=== PATIENT | male | born 1955 | race Caucasian/White ===

== ENCOUNTER 2017-08-04 23:33 | Inpatient (IN) | payer OTHER ==
[~2017-08-04 23:33] MED LIST: LIPI10TA PO; MECL25 PO
[2017-08-04 23:35] VITALS: BP 204/116; PULSE 84; RESP 17; TEMP 98.2; O2SAT 99
[2017-08-04 23:42] VITALS: PULSE 90; RESP 22; O2SAT 100
[2017-08-04] MEDS ORDERED: SODIUM CHLOR 0.9% 1000 ML INJ 1,000 ML IV ONE (23:48)
[2017-08-04] MEDS ORDERED: HEPARIN SODIUM - IV 10,000 UNITS/10 ML VIAL IV STA (23:48)
[2017-08-04] MEDS ORDERED: NITROGLYCERIN 0.4 MG SL 25 TABS/BTL SL STA (23:48)
[2017-08-04] MEDS ORDERED: ASPIRIN 81 MG CHEW TAB PO STA (23:48)
[2017-08-04 23:51] VITALS: O2SAT 100
[2017-08-05] VITALS (24 sets, daily range): BP systolic 120–179; BP diastolic 70–105; PULSE 64–90; RESP 16–20; TEMP 97.8–98; O2SAT 80–100
[2017-08-05] MEDS ORDERED: NITROGLYCERIN-D5W 50 MG/250 ML 250 ML IV PRN
[2017-08-05] MEDS ORDERED: HEPARIN SODIUM - IV 10,000 UNITS/10 ML VIAL IV ONE
[2017-08-05] MEDS ORDERED: SODIUM CHLORIDE 0.9% FLUSH 10 ML FLUSH IVF PRN
--- NOTE | 2017-08-05 00:01 | PD ---
HPI . Chest pain Chief Complaint: Chest Pain Time Seen by Provider: 23:45 Travel History International Travel<30 days: No Contact w/Intl Traveler<30days: No Traveled to known affect area: No History of Present Illness HPI This patient presents with the chief complaint of chest pain and diaphoresis. Onset was one hour ago. Chest pain is described as a pressure-like sensation which has been continuous and which he rates 10/10. The pain radiates to his jaw. He denies any shortness of breath. He denies any nausea or vomiting. He states he took 1 baby aspirin prior to arrival with no relief of his symptoms. This patient is a smoker. He has a history of hypertension but is on no medications. He has a history of hyperlipidemia for which he takes fish oil. PFS Past Medical History Blood Disorders: No Cancer: No High Cholesterol: Yes Endocrine: No Gastrointestinal Disorders: Yes (APPY IN 70'S) Genitourinary: No Hypertension: Yes (TOLD TO WATCH BP) Immune Disorder: No Musculoskeletal: Yes (ACL REPAIR) Neurologic: No Psychiatric: No Reproductive: No Respiratory: No Myocardial Infarction: Yes (08/04/17) Past Surgical History Appendectomy: Yes Tonsillectomy: Yes Other Surgery: Yes (torn ACL repair) Social History Alcohol Use: No Tobacco Use: Yes Substance Use: No Allergies-Medications (Allergen,Severity, Reaction): Coded Allergies: No Known Allergies (Unverified , 08/04/17) Reported Meds & Prescriptions Reported Meds & Active Scripts Active Review of Systems Except as stated in HPI: all other systems reviewed are Neg General / Constitutional: Positive: Other (diaphoresis) Cardiovascular: Positive: Chest Pain or Discomfort Physical Exam Narrative GENERAL: Patient is awake and alert. He appears anxious. SKIN: Patient is cool and clammy. HEAD: Normocephalic. EYES: Pupils equal and round. No scleral icterus. No injection or drainage. ENT: No nasal bleeding or discharge. Mucous membranes pink and moist. NECK: Trachea midline. Full range of motion without pain.. CARDIOVASCULAR: Regular rate and rhythm. RESPIRATORY: No accessory muscle use. Clear to auscultation. Breath sounds equal bilaterally. GASTROINTESTINAL: Abdomen soft. Nontender. Bowel sounds present. Nondistended. MUSCULOSKELETAL: No obvious deformities. NEUROLOGICAL: Awake and alert. No obvious cranial nerve deficits. Motor grossly within normal limits. Normal speech. PSYCHIATRIC: Appropriate mood and affect; insight and judgment normal. Data Data Last Documented VS Vital Signs Date Time Temp Pulse Resp B/P (MAP) Pulse Ox O2 Delivery O2 Flow Rate FiO2 08/05/17 00:18 83 20 179/105 (129) 100 Nasal Cannula 2.00 08/04/17 23:35 98.2 Orders Orders Troponin I (08/04/17 23:48) Ckmb (Isoenzyme) Profile (08/04/17 23:48) Complete Blood Count With Diff (08/04/17 23:48) I-Stat Profile (08/04/17 23:48) I-Stat Creatinine (08/04/17 23:48) Calcium (08/04/17:48) Magnesium (Mg) (08/04/17 23:48) Prothrombin Time / Inr (Pt) (08/04/17 23:48) Act Partial Throm Time (Ptt) (08/04/17 23:48) B-Type Natriuretic Peptide (08/04/17 23:48) Chest, Single Ap (08/04/17 23:48) Electrocardiogram (08/04/17 23:48) Oxygen Administration (08/04/17 23:48) Iv Access Insert/Monitor (08/04/17 23:48) Oximetry (08/04/17 23:48) Sodium Chlor 0.9% 1000 Ml Inj (Ns 1000 M (08/04/17 23:48) Sodium Chloride 0.9% Flush (Ns Flush) (08/05/17 00:00) Aspirin Chew (Aspirin Chew) (08/04/17 23:48) Nitroglycerin Sl (Nitrostat Sl) (08/04/17 23:48) Nitroglycerin-D5w 50 Mg/250 Ml (Nitrogly (08/05/17 00:00) Heparin Inj (Heparin Inj) (08/04/17 23:48) Heparin Inj (Heparin Inj) (08/05/17 00:00) Admit Order (Ed Use Only) (08/05/17 00:02) Labs Laboratory Tests Test 08/04/17 23:50 Bedside Hemoglobin 16.3 G/DL Bedside Hematocrit 48.0 % Prothrombin Time 10.2 SEC Prothromb Time International Ratio 0.9 RATIO Activated Partial Thromboplast Time 23.6 SEC Bedside Sodium 140 MMOL/L Bedside Potassium 4.2 MMOL/L Bedside Chloride 106 MMOL/L Bedside Blood Urea Nitrogen 23 MG/DL Bedside Creatinine 1.0 MG/DL Bedside Glucose 209 MG/DL [facility] Medical Decision Making Medical Screen Exam Complete: Yes Emergency Medical Condition: Yes Interpretation(s) EKG shows hyperacute T waves anteriorly, ST segment elevation in aVR and ST segment depression in the inferior leads. This EKG is compatible with an anterior CA. Differential Diagnosis Differential diagnosis of chest pain includes but is not limited to musculoskeletal pain, pulmonary embolism, acute coronary syndrome, pneumonia, pleurisy Narrative Course This patient presents with chest pain and shortness of breath for an hour. His EKG is compatible with an anterior CA. STEMI alert was called. Critical Care Narrative Aggregate critical care time was 20 minutes. Time to perform other separately billable procedures was not included in the critical care time. My time did not include minutes spent treating any other patients simultaneously or on activities that did not directly contribute to the patient's treatment. The services I provided to this patient were to treat and/or prevent clinically significant deterioration due to acute CA I provided critical care services requiring my management, as noted below: Chart data review, documentation time, medication orders and management, vital sign assessments/reviewing monitor data, ordering and reviewing lab tests, ordering and interpreting/reviewing x-rays and diagnostic studies, care of the patient and discussion of the patient with the admitting physicians Diagnosis Primary Impression: Acute CA Qualified Codes: I21.3 - ST elevation (STEMI) myocardial infarction of unspecified site Admitting Information Admitting Physician Requests: Admit Condition: Stable Sole Morillo MD Aug 05, 2017 00:01
[2017-08-05 00:06] LABS: I-STAT POTASSIUM 4.2 MMOL/L (3.5-4.9); I-STAT SODIUM 140 MMOL/L (138-146)
[2017-08-05 00:14] LABS: APTT (PATIENT) 23.6 SEC (24.3-30.1); INTERNATIONAL NORMALIZED RATIO 0.9 RATIO; PROTHROMBIN TIME - PATIENT 10.2 SEC (9.8-11.6)
--- NOTE | 2017-08-05 00:22 | RADRPT ---
EXAM DATE/TIME: 08/05/2017 00:03 [place] COMPARISON: No previous studies available for comparison. INDICATIONS : Left side chest pain. MEDICAL HISTORY : Hypertension. SURGICAL HISTORY : None. ENCOUNTER: Initial ACUITY: 1 day PAIN SCORE: 9/10 LOCATION: Left chest FINDINGS: A single view of the chest demonstrates the lungs to be symmetrically aerated without evidence of mas s, infiltrate or effusion. The cardiomediastinal contours are unremarkable except tortuous aorta. O sseous structures are intact. CONCLUSION: No acute disease. Giacomo Flores MD on August 05, 2017 at 0:19 Board Certified Radiologist. This report was verified electronically.
[2017-08-05] MEDS ORDERED: HEPARIN-NS/PF INJ 1,000 ML ONE (00:34)
[2017-08-05] MEDS ORDERED: HEPARIN SODIUM - IV 10,000 UNITS/10 ML VIAL ONE (00:35)
[2017-08-05] MEDS ORDERED: MIDAZOLAM HCL 2 MG/2 ML VIAL ONE (00:35)
[2017-08-05 00:43] LABS: MAGNESIUM 2.1 MG/DL (1.5-2.5)
[2017-08-05 00:44] LABS: CREATINE KINASE 225 U/L (39-308)
[2017-08-05 00:50] LABS: AUTOMATED NEUTROPHIL # 7.5 TH/MM3 (1.8-7.7); BASOPHIL # 0.1 TH/MM3 (0-0.2); BASOPHIL % 0.5 % (0.0-2.0); EOSINOPHIL # 0.1 TH/MM3 (0-0.4); EOSINOPHIL % 0.8 % (0.0-4.0); HEMATOCRIT 46.2 % (39.0-51.0); LYMPH % 17.7 % (9.0-44.0); LYMPHOCYTE # 1.8 TH/MM3 (1.0-4.8); MEAN CELL VOLUME 88.5 FL (80.0-100.0); MEAN CORPUSCULAR HEMOGLOBIN 31.2 PG (27.0-34.0); MEAN CORPUSCULAR HGB CONC 35.3 % (32.0-36.0); PLATELET COUNT 205 TH/MM3 (150-450); RED BLOOD COUNT 5.22 MIL/MM3 (4.50-5.90); RED CELL DISTRIBUTION WIDTH 13.2 % (11.6-17.2); WHITE BLOOD COUNT 10.3 TH/MM3 (4.0-11.0)
[2017-08-05] MEDS ORDERED: TIROFIBAN INFUSION INJ 250 ML IV ONE (00:50)
[2017-08-05 00:51] LABS: HEMO FLAGS AUTO DIFF
[2017-08-05 00:56] LABS: CKMB 4.1 NG/ML (0.5-3.6)
[2017-08-05] MEDS ORDERED: CLOPIDOGREL 300 MG TAB ONE (01:11)
--- NOTE | 2017-08-05 01:26 | CATHPROC ---
Datam HIS Report Study Information Study Number Admission Scheduled Start Study Start [id number] Aug 04 2017 11:33PM 08/05/2017 Aug 05 2017 12:23AM [place] Service Cardiac Catheterization Admit Source Facility Department Other [facility] - Certified Prosthetist Vice President Physician and Clinical Staff Initial Ida Okeefe Client Technical Professional Marce Li,KELLY Client Technical Professional Kerri Mack RN Other cathlab, cathlab Recorder Jack Pérez RCIS(BS) Scrub Bunny GuajardoRT(R) Procedures Performed Procedure Location (Site) Vessel Name Coronary Angiograms LCA Left Coronary Coronary Angiograms RCA Right Coronary Drug Eluting Inflatio LAD Mid Left Coronary L Heart Cath LV Gram-hand inj. LV LV Ventricle PTCA LAD Mid Left Coronary Wire insertion Fem Art (right) Femoral Art Equipment Time Custom Marine Canvas Fabricator Description Size Mfg Part Number Used/Scraped [id number] 00:48 FlatStack CRITICAL CARE WIRE, ImageProtect PROWATER 180CM 180CM Used *[id number] TRANSDUCER, TRUWAVE [id number] 00:37 BENDER ARREOLA * Used W/REBEKACOCK *[id number] BALLOON, 3.25 15MM NC 01:06 BOSTON SCIENTIFIC 3.25 15MM [id number] [place] [id number] 00:52 [employer] VL4 GUIDE CATHETER RUNWAY FR 6 Used *[id number]-502-10.0- INTRODUCER SET, 00:46 [employer]OOK [employer]. FR 5 SC-NT-U-SST Used MICROPUNCTURE, STIFFENED *[id number] [id number] *[id number] *[id number] PIGTAIL ANG. 145 INFINITI [id number] CATHETER *[id number] 01:12 DAIG/ST. GRIFFIN MEDICAL ANGIOSEAL, FR6 VIP FR 6 Used *[id number] 00:37 MEDLINE INDUSTRIES PACK, CCL CUSTOM * Used *[id number] 00:37 MEDLINE PACER PEN, SKIN DUAL W/ RULER * Used *[id number] 00:59 MEDTRONIC BALLOON, 2.5 X 20MM EUPHORA 20MM Used *[id number] STENT, 3.0 26 RESOLUTE [id number] 01:02 MEDTRONIC 3.0 26 Used INTEGRITY RX *[id number] 00:48 [employer] 30 JOYCE INDEFLATOR Used *[id number]- 00:37 [employer] MEDICAL SHEATH, FR6.5 PRELUDE 11CM FR 6.5 038ACT Used *[id number] 00:37 [employer] MEDICAL WIRE, 3MMJ .035 180CM 180CM Used *[id number] PROBE COVER, STERILE [id number] 00:37 [employer] MEDICAL * Used ULTRASOUND W/ GEL *[id number] 00:37 NAMIC MANIFOLD, 4 PORT * Used *[id number] 00:37 NYCOMED OMNIPAQUE, 350 MG, 150ML 150ML [id number] Used [id number] 00:37 ZUNIGA [facility] BLANKET,WARM AIR CCL * Used *[id number] Equipment Model, Serial, Lot Number and Expiration Data Description Model Number Serial Number Lot Number Expiration Date BALLOON, 3.25 15MM NC QUANTUM [id number] 01-22-2020 APEX MR STENT, 3.0 26 RESOLUTE [id number] 09-11-2018 INTEGRITY RX History: Allergies Allergy Reaction No Known Allergies History: Risk Factors Family History of Hypertension Dyslipidemia Previous MN Previous Heart Failure Premature CAD Yes No No No No Prior Valve Prior PCI Prior CABG Surgery No No No Cerebrovascular Peripheral Artery Chronic Lung On Dialysis Diabetes Disease Disease Disease No No No No No History: Symptoms/Diagnosis Selection Items Angina-unstable Chest pain History: Stress Tests Stress or Imaging Studies Performed No History: Other Disease Selection Items HTN History: Other Current Smoker Packs a Day Years Used Pack Years Yes 1 25 Labs Hgb (g/dl) Hct (%) 11.60-17.00 35.00-51.00 13.6 48 Glucose (mg/dl) Creatinine (mg/dl) 74.00-106.00 0.50-1.30 209 1.0 Na (meq/l) K (meq/l) 136.00-145.00 3.50-5.10 140 4.2 CPK-MB (ng/ML) 0.50-3.60 Not Drawn Medication Medication Total Dose (Bolus/Oral) Medication Total Dosage/Unit 1% XYLOCAINE 20 mL AGGRASTAT BOLUS 56 meq/kg FENTANYL 100 mcg HEPARIN 3000 units NTG (IC) 200 mcg PLAVIX 600 mg VERSED 2 mg Medications (Bolus/Oral) Medication Time Given Dosage/Unit Administered By Reason VERSED 08/05/2017 12:43:59 AM 2 mg Marce Li 2 mg VERSED given in lab by Marce Li RN in Left Antecubital via Peripheral IV. Ordered by Ida Navarro. FENTANYL 08/05/2017 12:44:05 AM 50 mcg Marce Li 50 mcg FENTANYL given in lab by Marce Li RN in Left Antecubital via Peripheral IV. Ordered by Ida Washburn. 1% XYLOCAINE 08/05/2017 12:44:11 AM 20 mL Ida Washburn 20 mL 1% XYLOCAINE given in lab by Ida Washburn in Right Groin via Subcutaneous. Ordered by Ida Hidalgo. FENTANYL 08/05/2017 12:49:07 AM 50 mcg Marce Li 50 mcg FENTANYL given in lab by Marce Li, KELLY via Peripheral IV. Ordered by Ida Washburn. HEPARIN 08/05/2017 12:49:54 AM 3000 units Marce Li Patient arrived on 3000 units HEPARIN given by Marce Li RN in Left Antecubital via Peripheral IV. Ordered by Ida Washburn. AGGRASTAT BOLUS 08/05/2017 12:52:57 AM 56 meq/kg Marce Li Patient arrived on 56 meq/kg AGGRASTAT BOLUS given by Marce Li RN in Left Antecubital via Per ipheral IV. Amount given = 6272 meq. Ordered by Ida Washburn. NTG (IC) 08/05/2017 1:07:24 AM 200 mcg Bunny Guajardo 200 mcg NTG (IC) given in lab by Bunny Guajardo, RT(R) via Intra-coronary. Ordered by Khris Washburn. PLAVIX 08/05/2017 1:18:44 AM 600 mg Marce Li 600 mg PLAVIX given in lab by Marce Li, KELLY via Oral. Ordered by Ida Washburn. Medication (Drip) Medication Time Given Dosage/Unit Concentration/Unit Diluent (ml) Solution AGGRASTAT DRIP 08/05/2017 12:56:39 AM 0.15 mcg/kg/min 12.5 mg 250 NaCl .9 Patient arrived on 0.15 mcg/kg/min AGGRASTAT DRIP given by Marce Li RN in Left Antecubital vi a Peripheral IV. Pump/Drip Flow = 20.2 ml/hr using NaCl .9 with a concentration of 12.5 mg in 250 ml. Ordered by Ida Washburn. AGGRASTAT DRIP 08/05/2017 1:22:02 AM 0 units/hr 0 STOPPED 0 units/hr AGGRASTAT DRIP STOPPED given in lab by Kerri Mack RN via Peripheral IV. Pump/Drip Cory w = 0 ml/hr using [Solution Name]. Ordered by Ida Washburn. IV Solutions 08/05/2017 12:29:02 AM 0 mL (IV) 500 NaCl .9 Patient arrived on IV Solutions in Right Antecubital via Peripheral IV. Pump/Drip Flow = 20 ml/hr usi ng NaCl .9. Ordered by Ida Washburn. NITROGLYCERIN DRIP 08/05/2017 12:29:03 AM 30 mcg/min 50 mg 250 D5W Patient arrived on 30 mcg/min NITROGLYCERIN DRIP given by rhonda ellis in Right Antecubital via P eripheral IV. Pump/Drip Flow = 9 ml/hr using D5W with a concentration of 50 mg in 250 ml. Ordered by Ida Washburn. NITROGLYCERIN DRIP 08/05/2017 12:49:31 AM 60 mcg/min 50 mg 250 D5W Patient arrived on 60 mcg/min NITROGLYCERIN DRIP given by Kerri Mack RN in Right Antecubital via Peripheral IV. Pump/Drip Flow = 18 ml/hr using D5W with a concentration of 50 mg in 250 ml. Ordered by Ida Washburn. Initial Case Assessment Cardiovascular HR Rhythm NIBP Chest Pain 85 stemi 166/100 10 Edema Present Skin color Skin None Normal Warm Dry Circulatory - Right Pulses Dorsalis Pedis Femoral 1 1 Scale (0,1,2,3,4,d) Circulatory - Left Pulses Dorsalis Pedis Femoral 1 1 Scale (0,1,2,3,4,d) Neurological State Oriented to time-place- Alert Moves all extremities person Respiration - General Respiration Rate SpO2 (%) (B/min) 15 97 Final Case Assessment Cardiovascular HR Rhythm NIBP Chest Pain 77 sinus 149/92 10 Edema Present Skin color Skin None Normal Warm Dry Circulatory - Right Pulses Dorsalis Pedis Femoral 1 1 Scale (0,1,2,3,4,d) Circulatory - Left Pulses Dorsalis Pedis Femoral 1 1 Scale (0,1,2,3,4,d) Neurological State Oriented to time-place- Alert Moves all extremities person Respiration - General Respiration Rate SpO2 (%) (B/min) 15 97 Chronological Log Time Study Chronological Log 0:28:51 Patient arrived via Bed. 0:28:52 Patient Name, D.O.B, / Armband Verified By R.N. 0:28:54 Consent signed by the physician and the patient and verified by the Certified Prosthetist Vice President staff. 0:28:54 Pre-op and post- op instructions given; patient acknowledges understanding of instructions. 0:28:56 Presedation assessment performed by Certified Prosthetist Vice President RN. 0:28:56 Immediate Presedation assesment performed by physician. 0:28:57 Patient has been NPO for More than 6Hrs. 0:28:58 Skin Breakdown- none per patient 0:28:59 Patient Warmer Placed on the Table. 0:29:00 Dorothea Prominences Protected 0:29:01 A # 20 IV was noted in the Antecubital (left). Grade = 0 0:29:02 A # 20 IV was noted in the Antecubital (right). Grade = 0 Patient arrived on IV Solutions in Right Antecubital via Peripheral IV. Pump/Drip Flow = 20 ml/ hr using NaCl .9. Ordered 0:29:02 by Ida Washburn. Patient arrived on 30 mcg/min NITROGLYCERIN DRIP given by cathladarius cathlab in Right Antecubital via Peripheral IV. 0:29:03 Pump/Drip Flow = 9 ml/hr using D5W with a concentration of 50 mg in 250 ml. Ordered by Ida Washburn. 0:29:03 History and physical on the chart or being dictated. 0:30:02 MD arrived. Vitals capture started with the following parameters, Patient=Adult, Interval=5 min, Initial Pre krldi=562 mmHg, 0:35:24 Deflation Rate=5 mmHg, Cuff placed on Left Arm Assessment: Initial Case, HR=85 BPM, Rhythm=stemi, WFFB=815/100 mmhg, Chest Pain=10, Edema=None, Color=Normal, Skin = Warm, Dry Right Pulses: Vargas Ped=1, Femoral=1 0:35:25 Left Pulses: Vargas Ped=1, Femoral=1 Neurological: State=Alert, Ox3, BRYANT Respiration: Resp=15 B/min, SpO2=97 % 0:36:36 HR=82 bpm, DJMK=472/100 mmhg, SpO2=98.0 %, Resp=16 B/min, Pain=10, Basia=10, Price=2 0:41:04 HR=80 bpm, JVFJ=539/100 mmhg, SpO2=97.0 %, Resp=15 B/min, Pain=10, Basia=10, Price=2 0:41:39 Pressure channel 1 zeroed. 0:41:44 Reference ECG taken 0:42:42 Contrast Scanned Time Out. Correct patient, correct procedure,correct physician, ,power injector not loaded with contrast with surgical 0:43:42 team present. Time Out Concurred by , individual staff in procedure 0:43:59 2 mg VERSED given in lab by Marce Li, KELLY in Left Antecubital via Peripheral IV. Order ed by Ida Washburn. 50 mcg FENTANYL given in lab by Marce Li RN in Left Antecubital via Peripheral IV. Order ed by Maddison, 0:44:05 Humstanun. 20 mL 1% XYLOCAINE given in lab by Ida Washburn in Right Groin via Subcutaneous. Ordered by Maddison, 0:44:11 Humayun. 0:46:04 Access site was Right Femoral Artery. 0:46:05 HR=82 bpm, UNAM=500/107 mmhg, SpO2=97.0 %, Resp=13 B/min, Pain=10, Basia=10, Price=2 A INTRODUCER SET, MICROPUNCTURE, STIFFENED FR 5 was advanced into the Fem Art (right) using the 0:46:08 Percutaneous technique. A SHEATH, FR6.5 PRELUDE 11CM FR 6.5 was exchanged in the Fem Art (right). This was necessary in order to 0:46:26 accomodate a larger catheter. 0:46:36 Activated Clotting Time Drawn A JL 5.0 INFINITI CATHETER FR 6 was advanced over a wire. OMNIPAQUE, 350 MG, 150ML 150ML was use d for 0:47:22 injections. Recorded Pressure: Ao, HR=82, Condition=Condition 1 0:47:44 (Aorta) Ao 170/97/129 0:47:55 The LCA was injected and visualized at various angles. OMNIPAQUE, 350 MG, 150ML 150ML used. 0:48:45 Catheter was removed A 3DRC INFINITI CATHETER FR 6 was advanced over a wire. OMNIPAQUE, 350 MG, 150ML 150ML was used for 0:48:46 injections. 0:49:07 50 mcg FENTANYL given in lab by Marce Li RN via Peripheral IV. Ordered by Naomie Washburn. Patient arrived on 60 mcg/min NITROGLYCERIN DRIP given by Kerri Mack RN in Right Antecubita l via Peripheral 0:49:31 IV. Pump/Drip Flow = 18 ml/hr using D5W with a concentration of 50 mg in 250 ml. Ordered by Ida Kingston. 0:49:36 ACT (Normal Range 90-180) = 164 Patient arrived on 3000 units HEPARIN given by Marce Li RN in Left Antecubital via Perip heral IV. Ordered by 0:49:54 Ida Washburn. 0:50:16 The RCA was injected and visualized at various angles. OMNIPAQUE, 350 MG, 150ML 150ML used. 0:51:02 HR=80 bpm, LIAQ=884/99 mmhg, SpO2=98.0 %, Resp=9 B/min, Pain=10, Basia=10, Price=2 A VL4 GUIDE CATHETER RUNWAY FR 6 was advanced over a wire. OMNIPAQUE, 350 MG, 150ML 150ML was us ed for 0:52:07 injections. Patient arrived on 56 meq/kg AGGRASTAT BOLUS given by Marce Li RN in Left Antecubital vi a Peripheral IV. 0:52:57 Amount given = 6272 meq. Ordered by Ida Washburn. 0:54:46 A WIRE, ASAHI PROWATER 180CM 180CM was inserted via Fem Art (right). 0:56:05 HR=76 bpm, VSMC=652/95 mmhg, SpO2=98.0 %, Resp=8 B/min, Pain=10, Basia=10, Price=2 Patient arrived on 0.15 mcg/kg/min AGGRASTAT DRIP given by Marce Li RN in Left Antecubit al via Peripheral 0:56:39 IV. Pump/Drip Flow = 20.2 ml/hr using NaCl .9 with a concentration of 12.5 mg in 250 ml. Ord ered by Ida Washburn. 0:57:29 Interventional wire has crossed the lesion Recorded Pressure: Ao, HR=82, Condition=Condition 1 0:57:47 (Aorta) Ao 120/71/98 0:58:12 A BALLOON, 2.5 X 20MM EUPHORA 20MM was inserted over WIRE, ASAHI PROWATER 180CM 180CM via th e LAD Mid. A BALLOON, 2.5 X 20MM EUPHORA 20MM over a WIRE, ASAHI PROWATER 180CM 180CM in the LAD Mid was in flated 0:59:33 using a 30 JOYCE INDEFLATOR at 14 joyce for 30 sec. 1:01:04 HR=77 bpm, FWME=684/98 mmhg, SpO2=97.0 %, Resp=14 B/min, Pain=10, Basia=10, Price=2 1:02:16 Balloon Removed. A STENT, 3.0 26 RESOLUTE INTEGRITY RX 3.0 26 was advanced through a VL4 GUIDE CATHETER RUNWAY FR 6 over 1:03:09 a WIRE, ASAHI PROWATER 180CM 180CM. A STENT, 3.0 26 RESOLUTE INTEGRITY RX 3.0 26 was deployed using a 30 JOYCE INDEFLATOR at 12 atmosp heres for 1:04:30 30 seconds in the LAD Mid. 1:06:01 HR=74 bpm, LRBY=045/98 mmhg, SpO2=98.0 %, Resp=15 B/min, Pain=10, Basia=10, Price=2 1:06:12 Delivery device removed 1:06:39 Activated Clotting Time Drawn 1:07:24 200 mcg NTG (IC) given in lab by Bunny Guajardo, RT(R) via Intra-coronary. Ordered by Ida Hidalgo. A BALLOON, 3.25 15MM NC QUANTUM APEX MR 3.25 15MM was inserted over WIRE, ASAHI PROWATER 180CM 1 80CM 1:07:41 via the LAD Mid. A BALLOON, 3.25 15MM NC QUANTUM APEX MR 3.25 15MM over a WIRE, ImageProtect PROWATER 180CM 180CM in the LAD 1:09:09 Mid was inflated using a 30 JOYCE INDEFLATOR at 14 joyce for 20 sec. 1:10:32 Balloon Removed. 1:10:48 Wire removed 1:10:49 Catheter was removed 1:11:02 HR=81 bpm, BQXC=049/93 mmhg, SpO2=93.0 %, Resp=12 B/min, Pain=10, Basia=10, Price=2 1:11:47 An injection in the Fem Art (right) was made through the SHEATH, FR6.5 PRELUDE 11CM FR 6.5. 1:12:59 ACT (Normal Range 90-180) = 261 A PIGTAIL ANG. 145 INFINITI CATHETER FR 6 was advanced over a wire. OMNIPAQUE, 350 MG, 150ML 150 ML was 1:13:34 used for injections. Recorded Pressure: LV, HR=76, Condition=Condition 1 1:14:43 (Left Ventricle) LV 141/13/28 1:14:45 The LV was manually injected with 10 cc's and visualized. OMNIPAQUE, 350 MG, 150ML 150ML use d. Recorded Pressure: LV, Ao, HR=76, Condition=Condition 1 1:14:56 (Left Ventricle) LV 137/14/24, (Aorta) Ao 140/81/108 1:15:13 Catheter was removed 1:15:24 ANGIOSEAL, FR6 VIP FR 6 placement in the Fem Art (right) 1:16:02 HR=77 bpm, SKCV=211/92 mmhg, SpO2=95.0 %, Resp=13 B/min, Pain=3, Basia=10, Price=2 1:16:05 Case End Assessment: Final Case, HR=77 BPM, Rhythm=sinus, LAWS=526/92 mmhg, Chest Pain=10, Edema=None, Color=Normal, Skin = Warm, Dry Right Pulses: Vargas Ped=1, Femoral=1 1:16:09 Left Pulses: Vargas Ped=1, Femoral=1 Neurological: State=Alert, Ox3, BRYANT Respiration: Resp=15 B/min, SpO2=97 % 1:16:24 Sterile dressing applied to site 1:16:25 No case complications noted. 1:16:25 Cine recording checked. 1:16:28 Bedside Report will be given. 1:16:29 Implantable Device card placed in patient's chart. 1:16:32 Contrast Scanned 1:16:41 A Left Heart Cath was performed. 1:18:44 600 mg PLAVIX given in lab by Marce Li, RN via Oral. Ordered by Ida Washburn. 1:21:05 HR=79 bpm, MOUU=417/88 mmhg, SpO2=97.0 %, Resp=10 B/min, Pain=3, Basia=10, Price=2 0 units/hr AGGRASTAT DRIP STOPPED given in lab by Kerri Mack, KELLY via Peripheral IV. Pump/D rip Flow = 0 ml/hr 1:22:02 using [Solution Name]. Ordered by Ida Washburn. 1:25:26 Vitals capture stopped. 1:26:10 Patient moved to [facility] End Study - Contrast Media Used In Study Contrast Total Opened (mL) Total Used (mL) Total Wasted (mL) Omnipaque 180 180 0 End Study - Maximum Contrast Load Max Contrast Load (mL) 560.0 End Study - Radiation Exposure Fluoro Time (minutes) 7.9 End Study - Patient Disposition Complications Transferred To Interventional Outcome No Telemetry Bed successful
[2017-08-05] MEDS ORDERED: oxyCODONE/ACETAMINOPHEN 5 MG/325 MG TAB PO PRN (01:45)
[2017-08-05] MEDS ORDERED: ATROPINE SULFATE 1 MG/ML VIAL IV PUSH PRN (01:45)
[2017-08-05] MEDS ORDERED: MISC INFORMATION XX ONE (01:45)
[2017-08-05] MEDS ORDERED: ACETAMINOPHEN 325 MG TAB PO PRN (01:45)
[2017-08-05] MEDS ORDERED: ONDANSETRON HCL 4 MG/2 ML VIAL IV PUSH PRN (01:45)
[2017-08-05] MEDS ORDERED: METOPROLOL TARTRATE 50 MG TAB PO SCH (01:45)
[2017-08-05] MEDS ORDERED: oxyCODONE/ACETAMINOPHEN 10 MG/325 MG TAB PO PRN (01:45)
[2017-08-05] MEDS ORDERED: SODIUM CHLOR 0.9% 250 ML INJ 250 ML IV PRN (01:45)
[2017-08-05] MEDS ORDERED: BACITRACIN OINT 0.9 GM PKT TOP ONE (01:45)
[2017-08-05] MEDS ORDERED: TEMAZEPAM 15 MG CAP PO PRN (01:45)
[2017-08-05 02:05] LABS: SCAN/DIFF AUTO DIFF CONFIRMED
[2017-08-05] MEDS: SODIUM CHLOR 0.9% 1000 ML INJ 1,000 ML IV SCH ×2 (02:12→10:32)
[2017-08-05] MEDS ORDERED: METOPROLOL TARTRATE 50 MG TAB PO ONE (06:15)
[2017-08-05] MEDS: METOPROLOL TARTRATE 50 MG TAB PO SCH ×2 (08:08→21:00)
[2017-08-05] MEDS: ASPIRIN 81 MG CHEW TAB PO SCH (08:08)
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
[2017-08-05] MEDS ORDERED: IOHEXOL 350 MG/ML 100 ML BTL (for Cath Lab) OTHER ONE (08:16)
--- NOTE | 2017-08-05 13:22 | EKG ---
Date Performed: 08/04/2017 Time Performed: 23:42:41 PTAGE: 61 years EKG: Sinus rhythm LEFT ANTERIOR FASCICULAR BLOCK POSSIBLE SEPTAL MYOCARDIAL INFARCTION POSSIBLE LATERAL MYOCARDIAL INF ARCTION ST DEPRESSION, CONSIDER SUBENDOCARDIAL INJURY ABNORMAL ECG PREVIOUS TRACING 10/02/2015 Tracing is pretty diagnostic for an anterior ST segment elevation infarct. The changes in the infarct are acute and new since the prior tracing. Clinical correlation w ill be necessary, but if the patient is having chest pain, then an acute STEMI is almost a certainty. DOCTOR: Paige Valencia Interpretating Date/Time 08/05/2017 13:21:08
--- NOTE | 2017-08-05 13:23 | EKG ---
Date Performed: 08/05/2017 Time Performed: 02:08:34 PTAGE: 61 years EKG: Sinus rhythm ST segment elevation myocardial infarction of the anteroseptal area Abnormal ECG PREVIOUS TRACING : 08/04/2017 23.42 Since the prior tracing, there is less reciprocal ST segmen t depression, but the ST segment elevation persists. DOCTOR: Paige Valencia Interpretating Date/Time 08/05/2017 13:22:14
--- NOTE | 2017-08-05 13:25 | EKG ---
Date Performed: 08/05/2017 Time Performed: 05:45:10 PTAGE: 61 years EKG: --- Warning: Data quality may affect interpretation --- Sinus rhythm with PVC(s) Possible septal infarct - age undetermined Abnormal ECG PREVIOUS TRACING : 08/05/2017 02.08 Since the prior tracing, there has been continued improveme nt in the ST segment elevation infarct involving the anteroseptal area. The serial tracing suggests s uccessful reperfusion of an occluded left anterior descending artery. DOCTOR: Paige aVlencia Interpretating Date/Time 08/05/2017 13:23:30
[2017-08-05] MEDS ORDERED: CLOPIDOGREL 75 MG TAB PO ONE (15:00)
--- NOTE | 2017-08-05 15:16 | PD.CARD.PN ---
Subjective Subjective Remarks no chest pain or SOB. groin site with mild soreness. no bruising or swelling. tele shows frequent runs of NSVT (Jaimie Fish) Objective Medications Current Medications Medications (Trade) Dose Ordered Sig/Marie Route Start Time Stop Time Status Last Admin (NS Flush) 2 ml UNSCH PRN IVF 08/05/17 00:00 08/05/17 00:06 (Tylenol) 325 mg Q4H PRN PO 08/05/17 01:45 (Percocet 5-325 Mg) 1 tab Q4H PRN PO 08/05/17 01:45 (Percocet 10-325 Mg) 1 tab Q4H PRN PO 08/05/17 01:45 08/05/17 11:20 (Restoril) 15 mg HS PRN PO 08/05/17 01:45 (Aspirin Chew) 81 mg DAILY PO 08/05/17 09:00 08/05/17 08:08 (Plavix) 75 mg DAILY PO 08/06/17 09:00 (Atropine Inj) 0.5 mg UNSCH PRN IV PUSH 08/05/17 01:45 Sodium Chloride 250 ml @ 500 mls/hr ONCE PRN IV 08/05/17 01:45 08/06/17 01:44 (Zofran Inj) 4 mg Q4H PRN IV PUSH 08/05/17 01:45 (Lipitor) 10 mg HS PO 08/05/17 21:00 (Lopressor) 50 mg BID PO 08/05/17 09:00 08/05/17 08:08 Vital Signs / I&O Vital Signs Date Time Temp Pulse Resp B/P (MAP) Pulse Ox O2 Delivery O2 Flow Rate FiO2 08/05/17 12:00 69 08/05/17 12:00 97.9 69 18 139/87 (104) 95 08/05/17 11:53 16 08/05/17 11:00 68 08/05/17 10:00 64 08/05/17 09:00 68 08/05/17 08:00 65 08/05/17 08:00 97.8 74 18 137/91 (106) 95 08/05/17 07:00 74 08/05/17 06:07 85 08/05/17 05:08 81 08/05/17 04:07 79 08/05/17 03:50 98.0 80 18 120/92 (101) 80 08/05/17 03:50 81 08/05/17 02:41 84 08/05/17 00:18 83 20 179/105 (129) 100 Nasal Cannula 2.00 08/05/17 00:11 87 16 176/103 (127) 100 Nasal Cannula 2.00 08/05/17 00:05 82 175/105 08/04/17 23:51 100 2.00 08/04/17 23:45 83 20 99 Room Air 08/04/17 23:42 90 22 100 Nasal Cannula 2.00 08/04/17 23:42 100 Nasal Cannula 2.00 08/04/17 23:35 98.2 84 17 204/116 (145) 99 I/O 08/04/17 08/04/17 08/04/17 08/05/17 08/05/17 08/05/17 07:00 15:00 23:00 07:00 15:00 23:00 Intake Total 338 ml Output Total 250 ml Balance 88 ml Intake Oral 240 ml IV Total 98 ml Output Urine Total 250 ml Physical Exam GENERAL: Middle aged obese male SKIN: Warm and dry. HEAD: Normocephalic. EYES: No scleral icterus. No injection or drainage. NECK: Supple, trachea midline. No JVD or lymphadenopathy. CARDIOVASCULAR: Regular rate and rhythm without murmurs, gallops, or rubs. right groin dressing C/D/I RESPIRATORY: Breath sounds equal bilaterally. No accessory muscle use. GASTROINTESTINAL: Abdomen soft, non-tender, nondistended. MUSCULOSKELETAL: No cyanosis, or edema. BACK: Nontender without obvious deformity. No CVA tenderness. Laboratory Laboratory Tests Test 08/04/17 23:50 White Blood Count 10.3 TH/MM3 Red Blood Count 5.22 MIL/MM3 Hemoglobin 16.3 GM/DL Bedside Hemoglobin 16.3 G/DL Hematocrit 46.2 % Bedside Hematocrit 48.0 % Mean Corpuscular Volume 88.5 FL Mean Corpuscular Hemoglobin 31.2 PG Mean Corpuscular Hemoglobin Concent 35.3 % Red Cell Distribution Width 13.2 % Platelet Count 205 TH/MM3 Mean Platelet Volume 9.9 FL Neutrophils (%) (Auto) 73.0 % Lymphocytes (%) (Auto) 17.7 % Monocytes (%) (Auto) 8.0 % Eosinophils (%) (Auto) 0.8 % Basophils (%) (Auto) 0.5 % Neutrophils # (Auto) 7.5 TH/MM3 Lymphocytes # (Auto) 1.8 TH/MM3 Monocytes # (Auto) 0.8 TH/MM3 Eosinophils # (Auto) 0.1 TH/MM3 Basophils # (Auto) 0.1 TH/MM3 CBC Comment AUTO DIFF Differential Comment AUTO DIFF CONFIRMED Prothrombin Time 10.2 SEC Prothromb Time International Ratio 0.9 RATIO Activated Partial Thromboplast Time 23.6 SEC Bedside Sodium 140 MMOL/L Bedside Potassium 4.2 MMOL/L Bedside Chloride 106 MMOL/L Bedside Blood Urea Nitrogen 23 MG/DL Bedside Creatinine 1.0 MG/DL Bedside Glucose 209 MG/DL Calcium Level 9.3 MG/DL Magnesium Level 2.1 MG/DL Total Creatine Kinase 225 U/L Creatine Kinase MB 4.1 NG/ML Troponin I 0.04 NG/ML B-Type Natriuretic Peptide 27 PG/ML Imaging Last 72 hours Impressions Chest X-Ray 08/04/17 8678 Signed Impressions: Service Date/Time: Saturday, August 05, 2017 00:03 - CONCLUSION: No acute disease. Giacomo Flores MD (Jaimie Fish) Assessment and Plan Assessment and Plan STEMI s/p cardiac cath with coronary stent. EF 60% NSVT Smoking HTN HLD PLAN: Increase metoprolol 75 mg BID Continue Plavix at least two years. Continue ASA, statin and ANISHA Will observe today and plan for discharge tomorrow if he remains stable. He will need to follow up with his [facility] doctor within one to two weeks after discharge. The patient was seen and evaluated by Dr Washburn who completed face to face encounter and physical exam, and participated in evaluation and management (Jaimie Fish) Assessment and Plan The exam, history, and the medical decision-making described in the above note were completed with the assistance of the mid-level provider. I reviewed and agree with the findings presented. I attest that I had a [id number] encounter with the patient on the same day, and personally performed and documented my assessment and findings in the medical record.OK to d/c fu one to two weeks (Ida Washburn MD) Jaimie Fish Aug 05, 2017 15:16 Ida Washburn MD Aug 07, 2017 15:06
--- NOTE | 2017-08-05 17:58 | MB ---
cc: IDA WASHBURN M.D. DATE OF CONSULTATION 08/05/2017 HISTORY Thank you Sole Morillo for referring this very pleasant gentleman who is a 61-year-old man who presented with a 1-2 hours history of severe chest pain and diaphoresis. His EKG showed an acute anterior infarction with hyperacute T-waves. He took a baby aspirin prior to coming to the hospital. He was given 4000 units of heparin and following my direction a further 2000 units of heparin in the emergency room. He is admitted for stenting and angioplasty. He is a long history of hypertension but has been noncompliant with medications. Unfortunately he is also a smoker. He smokes about one pack per day. He also has a history of hyperlipidemia for which takes he takes fish oil. PAST MEDICAL HISTORY Positive for: 1. Hyperlipidemia. 2. Appendectomy in the 70s. 3. Hypertension. SURGICAL HISTORY 1. Appendectomy. 2. Tonsillectomy. SOCIAL HISTORY Moderate smoker. REVIEW OF SYSTEMS Denies seizure, headache, vomiting, diarrhea, dysuria and hematuria. The remainder of the 12 point review of systems is negative. PHYSICAL EXAMINATION VITAL SIGNS: His pulse was 82. Blood pressure 179/105. HEENT: Eyes show no xanthelasma. Mouth shows no cyanosis or pallor. NECK: Showed no JVD. HEART: He had two heart sounds. No murmurs. CHEST: Clear. ABDOMEN: Soft. No hepatosplenomegaly. EXTREMITIES: Legs reveal no evidence of edema. NEUROLOGIC: no Weakness. LABORATORY DATA White count 10.6, hemoglobin 16.3. Sodium 140, potassium 4.2, creatinine 1.0, glucose was 209. CKMB 4.1. Troponin 0.01. EKG showed acute anterior infarction. ASSESSMENT AND PLAN This is a patient with acute chest pain and anterior infarction. He has been admitted for emergent heart catheterization. We reviewed the angioplasty, risks of the procedure including , bleeding or myocardial infarction, perforation, aspiration, foreseen and unforeseen complications reviewed. The patient fully appeared to understand the risks. Plan to proceed as soon as possible. Thank you for asking us to see this very pleasant gentleman. Ida Washburn MD, FRCP,FACC CATHERINE/ABHIJEET /1:29 AM /5:44 PM DENISE
[2017-08-05] MEDS ORDERED: ATORVASTATIN 10 MG TAB PO SCH (21:00)
[2017-08-06] VITALS (8 sets, daily range): BP systolic 108–134; BP diastolic 61–75; PULSE 65–83; RESP 18; TEMP 98.1–98.8; O2SAT 95–97
[2017-08-06 05:54] LABS: AUTOMATED NEUTROPHIL # 5.8 TH/MM3 (1.8-7.7); BASOPHIL # 0.1 TH/MM3 (0-0.2); BASOPHIL % 0.7 % (0.0-2.0); EOSINOPHIL # 0.1 TH/MM3 (0-0.4); EOSINOPHIL % 1.7 % (0.0-4.0); HEMATOCRIT 47.5 % (39.0-51.0); HEMO FLAGS DIFF FINAL; LYMPH % 20.1 % (9.0-44.0); LYMPHOCYTE # 1.7 TH/MM3 (1.0-4.8); MEAN CELL VOLUME 90.1 FL (80.0-100.0); MEAN CORPUSCULAR HEMOGLOBIN 30.4 PG (27.0-34.0); MEAN CORPUSCULAR HGB CONC 33.7 % (32.0-36.0); MONO % 9.2 % (0.0-8.0); NEUT % 68.3 % (16.0-70.0); PLATELET COUNT 196 TH/MM3 (150-450); RED BLOOD COUNT 5.27 MIL/MM3 (4.50-5.90); RED CELL DISTRIBUTION WIDTH 13.4 % (11.6-17.2); WHITE BLOOD COUNT 8.5 TH/MM3 (4.0-11.0)
[2017-08-06 06:40] LABS: BICARBONATE 26.6 MEQ/L (21.0-32.0); MAGNESIUM 1.9 MG/DL (1.5-2.5)
[2017-08-06] MEDS: METOPROLOL TARTRATE 50 MG TAB PO SCH (08:01)
[2017-08-06] MEDS: ASPIRIN 81 MG CHEW TAB PO SCH (08:01)
[2017-08-06] MEDS ORDERED: CLOPIDOGREL 75 MG TAB PO SCH (09:00)
--- NOTE | 2017-08-06 09:25 | HHI.PR ---
Subjective Remarks No new complaints. Pt is chest pain free. Pt is eager for discharge to home. Objective Vitals Vital Signs Date Time Temp Pulse Resp B/P (MAP) Pulse Ox O2 Delivery O2 Flow Rate FiO2 08/06/17 08:00 83 08/06/17 08:00 98.8 80 18 108/71 (83) 95 08/06/17 06:00 74 08/06/17 05:00 70 08/06/17 04:00 68 08/06/17 04:00 98.3 68 18 134/75 (94) 96 08/06/17 03:00 69 08/06/17 02:00 71 08/06/17 01:00 65 08/06/17 00:00 66 08/06/17 00:00 98.1 66 18 124/61 (82) 97 08/05/17 23:00 69 08/05/17 22:00 79 08/05/17 21:00 75 08/05/17 20:00 80 08/05/17 20:00 98.0 80 20 138/72 (94) 97 08/05/17 18:00 74 08/05/17 17:00 90 08/05/17 16:00 84 08/05/17 16:00 97.9 78 18 140/70 (93) 95 08/05/17 15:00 78 08/05/17 14:00 64 08/05/17 13:00 70 08/05/17 12:00 69 08/05/17 12:00 97.9 69 18 139/87 (104) 95 08/05/17 11:53 16 08/05/17 11:00 68 08/05/17 10:00 64 Result Diagram: 08/06/17 0500 08/06/17 0500 Imaging Last Impressions Chest X-Ray 08/04/17 1715 Signed Impressions: Service Date/Time: Saturday, August 05, 2017 00:03 - CONCLUSION: No acute disease. Giacomo Flores MD Objective Remarks GENERAL: This is a well-nourished, well-developed patient, in no apparent distress. CARDIOVASCULAR: Regular rate and rhythm without murmurs, gallops, or rubs. RESPIRATORY: Clear to auscultation. Breath sounds equal bilaterally. No wheezes , rales, or rhonchi. GASTROINTESTINAL: Abdomen soft, non-tender, nondistended. Normal active bowel sounds MUSCULOSKELETAL: Extremities without clubbing, cyanosis, or edema. NEURO: Alert & Oriented x4 to person, place, time, situation. Moves all ext x4 A/P Problem List: (1) STEMI (ST elevation myocardial infarction) ICD Codes: I21.3 - ST elevation (STEMI) myocardial infarction of unspecified site Status: Acute Plan: - Pt is a 61 y/o male with HTN, hyperlipidemia and tobacco abuse who was admitted with chest pain and diaphoresis - EKG at admission revealed evidence of anterior TX and STEMI alert was called. - Pt underwent LHC on 08/05/17 with reported stent placed to the LAD - Cardiology, Dr. Washburn, is following. - Pt has been started on Plavix/ASA/BB/Statin - Monitor HR on telemetry - Discussed tobacco cessation - Monitor vitals today - Supportive care (2) Tobacco abuse ICD Codes: Z72.0 - Tobacco use Status: Chronic Plan: - Tobacco cessation - Pt declined nicotine patch. Assessment and Plan Patient examined. Assessment and plan formulated with Marce Bazzi PA-C. I agree with the above. Problem Qualifiers (1) STEMI (ST elevation myocardial infarction): Qualified Codes: I21.02 - ST elevation (STEMI) myocardial infarction involving left anterior descending coronary artery Byron Alcantar DO Aug 06, 2017 09:25
[2017-08-06] MEDS ORDERED: LIPI20TA PO (09:34)
[2017-08-06] MEDS ORDERED: METO-309 PO (09:34)
[2017-08-06] MEDS ORDERED: OXYC1TAB63 PO (09:34)
[2017-08-06] MEDS ORDERED: ASPI81CH25 PO (09:34)
[2017-08-06] MEDS ORDERED: PLAV75TA29 PO (09:34)
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
--- NOTE | 2017-08-06 21:12 | EKG ---
Date Performed: 08/06/2017 Time Performed: 05:41:32 PTAGE: 61 years EKG: Sinus rhythm Septal and lateral ST-T changes are nonspecific Borderline ECG PREVIOUS TRACING : 08/05/2017 05.45 Compared to prior tracing no significant change DOCTOR: Ellen Cloud Interpretating Date/Time 08/06/2017 21:11:45
--- NOTE | 2017-08-06 22:11 | MA ---
cc: TOMMY FLETCHER D.O., HUMAYUN A. M.D. DATE 08/04/2017 DIAGNOSIS Anterior STEMI procedure. PROCEDURE PERFORMED 1. Left heart catheterization 2. LV gram 3. Angioplasty of the mid LAD. 4. Stent of the mid LAD. 5. Femoral angiogram 6. Sedation 7. Angio-Seal CONSENT A full informed consent was obtained prior to the procedure. The risks of , bleeding, myocardial infarction, perforation, aspiration, foreseen and unforeseen complications were reviewed. The patient fully appeared to understand the risks. PROCEDURAL STATEMENT The patient and draped and prepped in the usual manner. The right femoral artery was entered using a micropuncture technique with ultrasound. With the 6-Malaysian sheath, left and right coronary catheters were used to intubate the left and right coronaries. After the angioplasty, a pigtail catheter was utilized for the left ventricle. Multiple angiographic views were carried out. At the end of the catheterization procedure, the left Gabriela catheter was replaced with a [employer] left 4.0 guide. Through this, a 0.014 Prowater wire was used to cross the 99% high grade mid LAD stenosis. Prior to this, the patient had received 6000 of heparin and an ACT of 164 was obtained. The patient was given 3000 units of heparin and was also started on Aggrastat. Following this, the patient's ACT was finally 261. Following this, the patient had a Prowater wire passed across the mid LAD lesion. Angioplasty was carried out with a 2.5 x 20 mm compliant balloon. Following this, a stent 26 mm x 3.0 was passed across the lesion and inflated to 12 atmospheres. Following this, a 3.25 noncompliant balloon 20 millimeters in length was passed across the stent and inflated to 14 atmospheres. Check angiograms were performed. Intracoronary nitroglycerin was used in the usual manner. FINDINGS HEMODYNAMICS The aortic pressure was 140/80 with a mean aortic pressure of 108. The left ventricular pressure was 137 with a left ventricular end-diastolic pressure of 24. There was no evidence of significant gradient on pullback across the LV outflow tract and aortic valve. LEFT VENTRICULOGRAM The overall left ventricular ejection fraction was estimated at 60%. No significant mitral regurgitation or mural thrombus. CORONARIES The left main was large and free of significant disease. The left anterior descending artery was a large artery. There was a high-grade mid LAD stenosis of 99%. Following the above procedure, this was reduced to 0%. There was a small first diagonal and a small second diagonal just after the high-grade lesion and KARTIK flow was KARTIK grade 1 prior to stenting and KARTIK grade 3 following stenting. The circumflex vessel was a large vessel. There was small first obtuse marginal branch and a large second obtuse marginal branch. The right coronary artery was dominant. There was a medium posterior descending artery and a medium posterolateral branch. There was evidence of diffuse 25-30% disease in the distal right coronary. CONCLUSION Successful stenting of the mid-LAD for an acute STEMI reduced from 99% to 0% using a Resolute 3.0 x 26 mm. PLAN We will plan to discharge the patient in a day or two if stable. Ida Washburn MD, CP,FACC CATHERINE/YAYA /1:23 AM /9:54 PM
== END 2017-08-06 10:15 | disposition home or self-care (01) | DRG 247 ==
LOC: NEPC 23:33 → NEDA 08-05 00:03 → HCIS 08-05 01:31
PROVIDERS: ADMIT Internal Medicine Cardiovascular Disease; ATTEND Internal Medicine Cardiovascular Disease
PROC: 027034Z Dilation of Coronary Artery, One Artery with Drug-eluting Intraluminal Device, Percutaneous Approach (ICD-10-PCS; principal; 2017-08-05)
PROC: 4A023N7 Measurement of Cardiac Sampling and Pressure, Left Heart, Percutaneous Approach (ICD-10-PCS; 2017-08-05)
PROC: B2111ZZ Fluoroscopy of Multiple Coronary Arteries using Low Osmolar Contrast (ICD-10-PCS; 2017-08-05)
PROC: B2151ZZ Fluoroscopy of Left Heart using Low Osmolar Contrast (ICD-10-PCS; 2017-08-05)
DX: I21.09 ST elevation (STEMI) myocardial infarction involving other coronary artery of anterior wall (principal); I47.2 Ventricular tachycardia; I10 Essential (primary) hypertension; F17.210 Nicotine dependence, cigarettes, uncomplicated; Z91.14 Patient's other noncompliance with medication regimen; E78.1 Pure hyperglyceridemia
CPT/HCPCS: 71010; 80048; 80061; 82310; 82435; 82550; 82552; 82565; 82947; 83735; 83880; 84132; 84295; 84484; 84520; 85002; 85025; 85610; 85730; 92941; 93005; 93458; 96374; 99285; C1725; C1760; C1769; C1874; C1887; C1893; G0269; J1644; J2250; J3010; J3246; J7030; Q9967